=== PATIENT | female | born 1990 | race Caucasian/White ===

== ENCOUNTER 2024-12-16 18:29 | Emergency (ER) | payer MEDICAID ==
[~2024-12-16] VITALS: Ht 160 cm; Wt 63.5 kg
[2024-12-16 19:54] VITALS: TEMP 98.2
[2024-12-16 20:28] LABS: PLATELET COUNT (AUTO) 298 K/uL (150-450); RED BLOOD CELL COUNT(AUTO) 5.04 MIL/uL (4.0-5.2); RED CELL DISTRIBUTION WIDTH 15.6 % (11.5-15.0); WHITE BLOOD COUNT (AUTO) 9.2 K/uL (4.3-11.0)
[2024-12-16 20:40] LABS: CALCIUM, SERUM 8.8 mg/dL (8.5-10.1); CREATININE 0.5 mg/dL (0.6-1.3); SODIUM SERUM 138 mmol/L (136-145); UREA NITROGEN, BLOOD 8 mg/dL (7-18)
[2024-12-16 21:08] LABS: INR 1.1 (0.91-1.10)
[2024-12-16 23:50] VITALS: BP 120/71; O2SAT 97
== END 2024-12-16 23:50 | disposition home or self-care (01) ==
LOC: ER 18:33
DX: R07.89 Other chest pain (principal); R00.2 Palpitations; R06.02 Shortness of breath
CPT/HCPCS: 36415; 71045-TC; 80048-TC; 84484-TC; 85025-TC; 85378-TC; 85730-TC